=== PATIENT | female | born 1985 | race Caucasian/White ===

== ENCOUNTER 2017-10-06 18:59 | Emergency (ER) | payer SELFPAY ==
[~2017-10-06] VITALS: Ht 167.6 cm; Wt 65.9 kg
[2017-10-06 19:02] VITALS: BP 133/76; PULSE 112; RESP 16; TEMP 98.2; O2SAT 100
--- NOTE | 2017-10-06 20:32 | PD ---
HPI Chief Complaint: Related Problem Time Seen by Provider: 20:31 Travel History International Travel<30 days: No Contact w/Intl Traveler<30days: No Traveled to known affect area: No History of Present Illness HPI 31-year-old female with history of hepatitis C, IV drug use, presents emergency department for evaluation. 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 She reports that 2 days ago she found out she was by taking a home test. Her last menstrual cycle was August 15, 2017. Denies abdominal pain, nausea or vomiting. States that she has had body aches and cold and flulike symptoms over the last week. She last used heroin 8 days ago. She has no other symptoms to report. PFSH Past Medical History ?: LMP: 08/15/2017 Social History Tobacco Use: Yes Substance Use: Yes Allergies-Medications (Allergen,Severity, Reaction): Coded Allergies: amoxicillin (Verified Allergy, Severe, 10/06/17) gets a yeast infection clavulanic acid (Verified Allergy, Severe, 10/06/17) gets a yeast infection Reported Meds & Prescriptions Reported Meds & Active Scripts Active Se- 19 29-1 mg ( Vit W/ Docusate-Fe Fu) 29 Mg Iron-1 Mg-25 Mg Tab 1 Tab PO DAILY Review of Systems Except as stated in HPI: all other systems reviewed are Neg Physical Exam Narrative GENERAL: Thin female patient, in no acute distress. SKIN: Focused skin assessment warm/dry. HEAD: Atraumatic. Normocephalic. EYES: Pupils equal and round. No scleral icterus. No injection or drainage. ENT: No nasal bleeding or discharge. Mucous membranes pink and moist. NECK: Trachea midline. No JVD. CARDIOVASCULAR: Tachycardic rate and rhythm. No murmur appreciated. RESPIRATORY: No accessory muscle use. Clear to auscultation. Breath sounds equal bilaterally. GASTROINTESTINAL: Abdomen soft, non-tender, nondistended. Hepatic and splenic margins not palpable. MUSCULOSKELETAL: No obvious deformities. No clubbing. No cyanosis. No edema. NEUROLOGICAL: Awake and alert. No obvious cranial nerve deficits. Motor grossly within normal limits. Normal speech. Data Data Last Documented VS Vital Signs Date Time Temp Pulse Resp B/P (MAP) Pulse Ox O2 Delivery O2 Flow Rate FiO2 10/06/17 22:48 10/06/17 19:02 98.2 112 16 100 Room Air Orders Orders Iv Access Insert/Monitor (10/06/17 20:38) Complete Blood Count With Diff (10/06/17 20:38) Beta Hcg (Quant/Titer) (10/06/17 20:38) Urinalysis - C+S If Indicated (10/06/17 20:38) Drug Screen, Random Urine (10/06/17 20:38) Influenzae A/B Antigen (10/06/17 20:38) Comprehensive Metabolic Panel (10/06/17 20:40) Ed Poc Ultrasound (10/06/17 ) Ed Discharge Order (10/06/17 22:17) Labs Laboratory Tests Test 10/06/17 20:49 White Blood Count 9.8 TH/MM3 Red Blood Count 5.15 MIL/MM3 Hemoglobin 15.6 GM/DL Hematocrit 45.2 % Mean Corpuscular Volume 87.9 FL Mean Corpuscular Hemoglobin 30.3 PG Mean Corpuscular Hemoglobin Concent 34.5 % Red Cell Distribution Width 13.4 % Platelet Count 266 TH/MM3 Mean Platelet Volume 7.9 FL Neutrophils (%) (Auto) 66.1 % Lymphocytes (%) (Auto) 26.8 % Monocytes (%) (Auto) 6.0 % Eosinophils (%) (Auto) 0.7 % Basophils (%) (Auto) 0.4 % Neutrophils # (Auto) 6.5 TH/MM3 Lymphocytes # (Auto) 2.6 TH/MM3 Monocytes # (Auto) 0.6 TH/MM3 Eosinophils # (Auto) 0.1 TH/MM3 Basophils # (Auto) 0.0 TH/MM3 CBC Comment DIFF FINAL Differential Comment Urine Color YELLOW Urine Turbidity HAZY Urine pH 6.5 Urine Specific [place] 1.024 Urine Protein TRACE mg/dL Urine Glucose (UA) NEG mg/dL Urine Ketones NEG mg/dL Urine Occult Blood NEG Urine Nitrite NEG Urine Bilirubin NEG Urine Urobilinogen LESS THAN 2.0 MG/DL Urine Leukocyte Esterase MOD Urine RBC 1 /hpf Urine WBC 2 /hpf Urine Squamous Epithelial Cells 7 /hpf Urine Bacteria RARE /hpf Urine Mucus MANY /lpf Microscopic Urinalysis Comment CULT NOT INDICATED Blood Urea Nitrogen 10 MG/DL Creatinine 0.72 MG/DL Random Glucose 72 MG/DL Total Protein 8.8 GM/DL Albumin 3.9 GM/DL Calcium Level 10.1 MG/DL Alkaline Phosphatase 79 U/L Aspartate Amino Transf (AST/SGOT) 15 U/L Alanine Aminotransferase (ALT/SGPT) 15 U/L Total Bilirubin 0.4 MG/DL Sodium Level 137 MEQ/L Potassium Level 3.8 MEQ/L Chloride Level 104 MEQ/L Carbon Dioxide Level 27.4 MEQ/L Anion Gap 6 MEQ/L Estimat Glomerular Filtration Rate 94 ML/MIN Human Chorionic Gonadotropin, Quant 42848 MIU/ML Urine Opiates Screen NEG Urine Barbiturates Screen NEG Urine Amphetamines Screen NEG Urine Benzodiazepines Screen NEG Urine Cocaine Screen NEG Urine Cannabinoids Screen POS MDM Medical Decision Making Medical Screen Exam Complete: Yes Emergency Medical Condition: Yes Medical Record Reviewed: Yes Differential Diagnosis versus opiate withdrawal versus opiate dependency versus UTI Narrative Course 31-year-old female presents to emergency department for evaluation. Patient appears without distress. Lab work is complete and reviewed bedside point-of- care ultrasound is completed by my attending physician. Please refer her documentation for details surrounding the patient's current exam. Laboratory Tests Test 10/06/17 20:49 White Blood Count 9.8 TH/MM3 Red Blood Count 5.15 MIL/MM3 Hemoglobin 15.6 GM/DL Hematocrit 45.2 % Mean Corpuscular Volume 87.9 FL Mean Corpuscular Hemoglobin 30.3 PG Mean Corpuscular Hemoglobin Concent 34.5 % Red Cell Distribution Width 13.4 % Platelet Count 266 TH/MM3 Mean Platelet Volume 7.9 FL Neutrophils (%) (Auto) 66.1 % Lymphocytes (%) (Auto) 26.8 % Monocytes (%) (Auto) 6.0 % Eosinophils (%) (Auto) 0.7 % Basophils (%) (Auto) 0.4 % Neutrophils # (Auto) 6.5 TH/MM3 Lymphocytes # (Auto) 2.6 TH/MM3 Monocytes # (Auto) 0.6 TH/MM3 Eosinophils # (Auto) 0.1 TH/MM3 Basophils # (Auto) 0.0 TH/MM3 CBC Comment DIFF FINAL Differential Comment Urine Color YELLOW Urine Turbidity HAZY Urine pH 6.5 Urine Specific [place] 1.024 Urine Protein TRACE mg/dL Urine Glucose (UA) NEG mg/dL Urine Ketones NEG mg/dL Urine Occult Blood NEG Urine Nitrite NEG Urine Bilirubin NEG Urine Urobilinogen LESS THAN 2.0 MG/DL Urine Leukocyte Esterase MOD Urine RBC 1 /hpf Urine WBC 2 /hpf Urine Squamous Epithelial Cells 7 /hpf Urine Bacteria RARE /hpf Urine Mucus MANY /lpf Microscopic Urinalysis Comment CULT NOT INDICATED Blood Urea Nitrogen 10 MG/DL Creatinine 0.72 MG/DL Random Glucose 72 MG/DL Total Protein 8.8 GM/DL Albumin 3.9 GM/DL Calcium Level 10.1 MG/DL Alkaline Phosphatase 79 U/L Aspartate Amino Transf (AST/SGOT) 15 U/L Alanine Aminotransferase (ALT/SGPT) 15 U/L Total Bilirubin 0.4 MG/DL Sodium Level 137 MEQ/L Potassium Level 3.8 MEQ/L Chloride Level 104 MEQ/L Carbon Dioxide Level 27.4 MEQ/L Anion Gap 6 MEQ/L Estimat Glomerular Filtration Rate 94 ML/MIN Human Chorionic Gonadotropin, Quant 10004 MIU/ML Urine Opiates Screen NEG Urine Barbiturates Screen NEG Urine Amphetamines Screen NEG Urine Benzodiazepines Screen NEG Urine Cocaine Screen NEG Urine Cannabinoids Screen POS I have discussed the findings with my attending. Patient was discharged to follow-up outpatient with DIRECTOR OF ATHLETICS. She agrees to return immediately with any acute worsening of symptoms. Diagnosis Primary Impression: Qualified Codes: Z3A.08 - 8 weeks gestation of Additional Impressions: Substance abuse UTI (urinary tract infection) Qualified Codes: N30.00 - Acute cystitis without hematuria Referrals: Ambulance Dispatcher Primary Care Physician Patient Instructions: General Instructions, (ED), Diet (GEN ) Additional Instructions: Follow-up with an DIRECTOR OF ATHLETICS Maintain adequate oral hydration Return immediately to the emergency department with any acute worsening symptoms Med/Other Pt SpecificInfo: Prescription(s) given Scripts Vit W/ Docusate-Fe Fu (Se- 19 29-1 mg) 29 Mg Iron-1 Mg-25 Mg Tab 1 TAB PO DAILY for Nutritional Supplement, #30 TAB 0 Refills Prov: Dasha Clayton 10/06/17 Disposition: 01 DISCHARGE HOME Condition: Stable Dasha Clayton Oct 06, 2017 20:32
[2017-10-06 21:09] LABS: AUTOMATED NEUTROPHIL # 6.5 TH/MM3 (1.8-7.7); BASOPHIL % 0.4 % (0.0-2.0); EOSINOPHIL # 0.1 TH/MM3 (0-0.4); EOSINOPHIL % 0.7 % (0.0-4.0); HEMATOCRIT 45.2 % (35.0-46.0); HEMOGLOBIN 15.6 GM/DL (11.6-15.3); LYMPH % 26.8 % (9.0-44.0); LYMPHOCYTE # 2.6 TH/MM3 (1.0-4.8); MEAN CELL VOLUME 87.9 FL (80.0-100.0); MEAN CORPUSCULAR HEMOGLOBIN 30.3 PG (27.0-34.0); MEAN CORPUSCULAR HGB CONC 34.5 % (32.0-36.0); MEAN PLATELET VOLUME 7.9 FL (7.0-11.0); MONOCYTE # 0.6 TH/MM3 (0-0.9); NEUT % 66.1 % (16.0-70.0); PLATELET COUNT 266 TH/MM3 (150-450); RED BLOOD COUNT 5.15 MIL/MM3 (4.00-5.30); RED CELL DISTRIBUTION WIDTH 13.4 % (11.6-17.2); WHITE BLOOD COUNT 9.8 TH/MM3 (4.0-11.0)
[2017-10-06 21:13] LABS: BACTERIA, URINE RARE /hpf; BILIRUBIN, URINE NEG (NEG); BLOOD, URINE NEG (NEG); GLUCOSE,URINE NEG (NEG); KETONE, URINE NEG (NEG); MUCUS URINE MANY /lpf (OCC); NITRITE,URINE NEG (NEG); PH, URINE 6.5 (5.0-8.5); SQUAMOUS EPITHELIAL CELL URINE 7 /hpf (0-5); URINE COLOR YELLOW (YELLW/STRAW); URINE LEUKOCYTE ESTERASE MOD (NEG)
[2017-10-06 21:25] LABS: ALBUMIN 3.9 GM/DL (3.4-5.0); ALT (GPT) 15 U/L (10-53); AST (GOT) 15 U/L (15-37); BICARBONATE 27.4 MEQ/L (21.0-32.0); BLOOD UREA NITROGEN 10 MG/DL (7-18); CALCIUM 10.1 MG/DL (8.5-10.1); CHLORIDE 104 MEQ/L (98-107); CREATININE 0.72 MG/DL (0.50-1.00); GLOMERULAR FILTRATION RATE 94 ML/MIN (>89); GLUCOSE,RANDOM 72 MG/DL (74-106); SODIUM (NA) 137 MEQ/L (136-145)
[2017-10-06 21:27] LABS: ALKALINE PHOSPHATASE 79 U/L (45-117); TOTAL BILIRUBIN ADULT 0.4 MG/DL (0.2-1.0); TOTAL PROTEIN 8.8 GM/DL (6.4-8.2)
--- NOTE | 2017-10-06 22:21 | PD ---
Physical Exam Narrative I, Dr. Winchester, have reviewed the advance practice practitioner's documentation and am in agreement, met with the patient face to face, made the diagnosis, and the medical decision making was done by me. *My assessment and Findings: Early vs. influenza vs. heroin withdrawal 31yo F who is with LMP 08/15/17 here with flu like symptoms. No abdominal pain on exam. No vaginal bleeding. Influenza negative. Labs reviewed, no leukocytosis. Glucose 72, pt given food and tolerating PO. bHCG 10351. Bedside US showed IUP with FHR. Utox positive for cannabinoids. UA showed moderate blood. Squamous 7. Data Data Last Documented VS Vital Signs Date Time Temp Pulse Resp B/P (MAP) Pulse Ox O2 Delivery O2 Flow Rate FiO2 10/06/17 19:02 98.2 112 16 133/76 (95) 100 Room Air Orders Orders Iv Access Insert/Monitor (10/06/17 20:38) Complete Blood Count With Diff (10/06/17 20:38) Beta Hcg (Quant/Titer) (10/06/17 20:38) Urinalysis - C+S If Indicated (10/06/17 20:38) Drug Screen, Random Urine (10/06/17 20:38) Influenzae A/B Antigen (10/06/17 20:38) Comprehensive Metabolic Panel (10/06/17 20:40) Ed Poc Ultrasound (10/06/17 ) Labs Laboratory Tests Test 10/06/17 20:49 White Blood Count 9.8 TH/MM3 Red Blood Count 5.15 MIL/MM3 Hemoglobin 15.6 GM/DL Hematocrit 45.2 % Mean Corpuscular Volume 87.9 FL Mean Corpuscular Hemoglobin 30.3 PG Mean Corpuscular Hemoglobin Concent 34.5 % Red Cell Distribution Width 13.4 % Platelet Count 266 TH/MM3 Mean Platelet Volume 7.9 FL Neutrophils (%) (Auto) 66.1 % Lymphocytes (%) (Auto) 26.8 % Monocytes (%) (Auto) 6.0 % Eosinophils (%) (Auto) 0.7 % Basophils (%) (Auto) 0.4 % Neutrophils # (Auto) 6.5 TH/MM3 Lymphocytes # (Auto) 2.6 TH/MM3 Monocytes # (Auto) 0.6 TH/MM3 Eosinophils # (Auto) 0.1 TH/MM3 Basophils # (Auto) 0.0 TH/MM3 CBC Comment DIFF FINAL Differential Comment Urine Color YELLOW Urine Turbidity HAZY Urine pH 6.5 Urine Specific [place] 1.024 Urine Protein TRACE mg/dL Urine Glucose (UA) NEG mg/dL Urine Ketones NEG mg/dL Urine Occult Blood NEG Urine Nitrite NEG Urine Bilirubin NEG Urine Urobilinogen LESS THAN 2.0 MG/DL Urine Leukocyte Esterase MOD Urine RBC 1 /hpf Urine WBC 2 /hpf Urine Squamous Epithelial Cells 7 /hpf Urine Bacteria RARE /hpf Urine Mucus MANY /lpf Microscopic Urinalysis Comment CULT NOT INDICATED Blood Urea Nitrogen 10 MG/DL Creatinine 0.72 MG/DL Random Glucose 72 MG/DL Total Protein 8.8 GM/DL Albumin 3.9 GM/DL Calcium Level 10.1 MG/DL Alkaline Phosphatase 79 U/L Aspartate Amino Transf (AST/SGOT) 15 U/L Alanine Aminotransferase (ALT/SGPT) 15 U/L Total Bilirubin 0.4 MG/DL Sodium Level 137 MEQ/L Potassium Level 3.8 MEQ/L Chloride Level 104 MEQ/L Carbon Dioxide Level 27.4 MEQ/L Anion Gap 6 MEQ/L Estimat Glomerular Filtration Rate 94 ML/MIN Human Chorionic Gonadotropin, Quant 06186 MIU/ML Urine Opiates Screen NEG Urine Barbiturates Screen NEG Urine Amphetamines Screen NEG Urine Benzodiazepines Screen NEG Urine Cocaine Screen NEG Urine Cannabinoids Screen POS MDM Supervised Visit with MICHAEL: Yes Procedures Procedure Narrative Emergency Department Pelvic ultrasound was performed with patient consent. The curvilinear probe was used in the transverse and sagittal views within the suprapubic region revealing single intrauterine . heart rate was 162bpm. Diagnosis Primary Impression: Flu-like symptoms Scripts No Active Prescriptions or Reported Meds Tana Winchester DO Oct 06, 2017 22:20
[2017-10-06] MEDS ORDERED: SE-NTAB3 PO (22:27)
== END 2017-10-06 22:50 | disposition home or self-care (01) ==
LOC: NEPD 18:59
DX: O98.511 Other viral diseases complicating pregnancy, first trimester (principal); O99.321 Drug use complicating pregnancy, first trimester; F11.10 Opioid abuse, uncomplicated; O23.11 Infections of bladder in pregnancy, first trimester; O99.331 Smoking (tobacco) complicating pregnancy, first trimester; Z3A.08 8 weeks gestation of pregnancy
CPT/HCPCS: 80053; 80307; 81001; 84702; 85025; 87804